=== PATIENT | male | born 1955 | race Two or more races ===

== ENCOUNTER 2018-09-30 12:06 | Emergency (ER) | payer OTHER ==
[~2018-09-30] VITALS: Ht 154.9 cm; Wt 60.9 kg
[2018-09-30 12:11] VITALS: Ht 154.9 cm; Wt 60.9 kg
[2018-09-30 13:47] LABS: APPEARANCE SL CLDY (CLEAR); BACTERIA FEW /hpf (NONE SEEN); BILIRUBIN NEGATIVE (NEGATIVE); COLOR PINK (YELLOW); EPITHELIAL CELLS RARE /hpf (0-5); GLUCOSE NEGATIVE (NEGATIVE); KETONE NEGATIVE (NEGATIVE); MUCUS <1+ /lpf (NONE SEEN); NITRITE NEGATIVE (NEGATIVE); PROTEIN 1+ mg/dL (NEGATIVE); RED CELLS - URINE 25-50 /hpf (0-5); SPERMATOZOA PRESENT /hpf (NONE SEEN); UROBILINOGEN NORMAL (NORMAL); WHITE CELLS - URINE RARE /hpf (0-5)
[2018-09-30 14:21] VITALS: BP 141/78
== END 2018-09-30 14:22 | disposition home or self-care (01) ==
LOC: D.ER 12:06
PROVIDERS: Emergency Medicine
DX: R31.9 Hematuria, unspecified (principal)